=== PATIENT | female | born 1955 | race Caucasian/White ===

== ENCOUNTER 2022-05-04 14:14 | Inpatient (IN) ==
[2022-05-04] MEDS ORDERED: NORCO 7.5/325 MG TAB PO PRN (17:09)
[2022-05-04] MEDS: MOBIC TAB 15 MG PO SCH (17:39)
[2022-05-04 17:55] LABS: ALANINE AMINOTRANSFERASE 22 Units/L (12-78); ALBUMIN 3.5 g/dL (3.4-5.0); ALKALINE PHOSPHATASE 75 Units/L (46-116); ASPARTATE AMINO TRANSFERASE 24 Units/L (15-37); BLOOD UREA NITROGEN 16 mg/dL (7-18); CALCIUM 8.6 mg/dL (8.5-10.1); CHLORIDE 105 mmol/L (98-107); CREATININE 0.63 mg/dL (0.55-1.02); SODIUM 139 mmol/L (136-145); TOTAL PROTEIN 7.8 g/dL (6.4-8.2); eGFR NON BLACK RACES > 60 (>60)
[2022-05-04 17:58] LABS: BASOPHILS # (AUTO) 0.1 X10^3/uL (0.0-0.1); BASOPHILS % (AUTO) 1.4 % (0.2-1.0); EOSINOPHILS # (AUTO) 0.2 x10^3/uL (0.0-0.2); EOSINOPHILS % (AUTO) 1.8 % (0.9-2.9); HEMATOCRIT 35.7 % (36.0-47.0); HEMOGLOBIN 12.2 g/dL (12.0-16.0); LYMPHOCYTES # (AUTO) 2.6 X10^3/uL (1.3-2.9); LYMPHOCYTES % (AUTO) 29.4 % (21.0-51.0); MEAN CORPUSCULAR HEMOGLOBIN 29.6 pg (27.0-34.0); MEAN CORPUSCULAR VOLUME 86.9 fL (80.0-100.0); MEAN PLATELET VOLUME 6.6 fL (7.4-11.0); MONOCYTES # (AUTO) 0.8 x10^3/uL (0.3-0.8); MONOCYTES % (AUTO) 9.2 % (0.0-13.0); NEUTROPHILS # (AUTO) 5.1 x10^3/uL (2.2-4.8); NEUTROPHILS % (AUTO) 58.2 % (42.0-75.0); RED BLOOD COUNT 4.11 X10^6/uL (3.5-5.4); RED CELL DISTRIBUTION WIDTH 15.3 % (11.6-16.5)
[2022-05-04 18:11] LABS: WHITE BLOOD COUNT 8.8 X10^3/uL (3.6-10.0)
[2022-05-04 18:14] LABS: PLATELET MORPHOLOGY COMMENT NORMAL (NORMAL)
[2022-05-04 18:18] VITALS: BMI 17.5
[2022-05-05] MEDS: DILAUDID INJ IVP PRN ×4 (01:50→21:31)
[2022-05-05 06:02] LABS: BASOPHILS # (AUTO) 0.1 X10^3/uL (0.0-0.1); BASOPHILS % (AUTO) 1.4 % (0.2-1.0); EOSINOPHILS # (AUTO) 0.2 x10^3/uL (0.0-0.2); EOSINOPHILS % (AUTO) 3.2 % (0.9-2.9); HEMATOCRIT 35.3 % (36.0-47.0); HEMOGLOBIN 12.1 g/dL (12.0-16.0); LYMPHOCYTES # (AUTO) 2.7 X10^3/uL (1.3-2.9); LYMPHOCYTES % (AUTO) 39.3 % (21.0-51.0); MEAN CORPUSCULAR HEMOGLOBIN 29.9 pg (27.0-34.0); MEAN CORPUSCULAR HGB CONC 34.2 g/dL (33.0-35.0); MEAN CORPUSCULAR VOLUME 87.4 fL (80.0-100.0); MEAN PLATELET VOLUME 6.3 fL (7.4-11.0); MONOCYTES # (AUTO) 0.6 x10^3/uL (0.3-0.8); MONOCYTES % (AUTO) 8.2 % (0.0-13.0); NEUTROPHILS # (AUTO) 3.3 x10^3/uL (2.2-4.8); NEUTROPHILS % (AUTO) 47.9 % (42.0-75.0); RED BLOOD COUNT 4.04 X10^6/uL (3.5-5.4); WHITE BLOOD COUNT 6.8 X10^3/uL (3.6-10.0)
[2022-05-05 06:34] LABS: ALANINE AMINOTRANSFERASE 19 Units/L (12-78); ALBUMIN 3.3 g/dL (3.4-5.0); ALKALINE PHOSPHATASE 69 Units/L (46-116); ASPARTATE AMINO TRANSFERASE 21 Units/L (15-37); BLOOD UREA NITROGEN 16 mg/dL (7-18); CALCIUM 8.7 mg/dL (8.5-10.1); CARBON DIOXIDE 22.1 mmol/L (21-32); CHLORIDE 106 mmol/L (98-107); COR CA(FOR HYPOALB) 9.3 mg/dL (8.5-10.1); CREATININE 0.65 mg/dL (0.55-1.02); SODIUM 140 mmol/L (136-145); TOTAL PROTEIN 7.2 g/dL (6.4-8.2); eGFR NON BLACK RACES > 60 (>60)
[2022-05-05] MEDS: MOBIC TAB 15 MG PO SCH (08:05)
[2022-05-05] MEDS: LOVENOX INJ 40 MG SYR SC SCH (13:41)
--- NOTE | 2022-05-05 17:07 | MRI ---
HISTORYINTRACTABLE PAIN, GAIT ABNORMALITYSTUDYCERVICAL W/O CONCOMPARISONCT cervical spine from March 31, 2022TECHNIQUEMRI of the cervical spine were obtained without the administration of IV contrast utilizing a routine protocol.FINDINGSNo abnormal T2 or pathologic signal in the imaged vertebral bodies.Anterior spinal fusion hardware in place at C6-C7.Grade 1 anterolisthesis of C3 on C4; secondary to posterior degenerative changes.Vertebral body heights are maintained.Atlanto-axial articulation is intact.Visualized portion of the cerebellum and brainstem appear normal.Soft tissues are unremarkable.Levels:C2-C3: No significant posterior disc bulge or central canal stenosis. Mild right neural foraminal narrowing secondary to uncovertebral degenerative changes.C3-C4: Moderate central canal stenosis secondary to grade 1 anterolisthesis of C3 on C4 as well as a broad-based posterior disc bulge. Increased T2 signal in the spinal cord posterior to the C3-C4 disc space (extending from the mid C3 to mid C4 vertebral bodies) is consistent with myelomalacia. Severe bilateral neural foraminal narrowing secondary to uncovertebral facet degenerative changes.C4-C5: Moderate intervertebral disc space height loss. Moderate broad-based anterior disc osteophyte complex. Mild broad-based posterior disc bulge not resulting in significant central canal stenosis. Severe left and moderate right neural foraminal narrowing secondary to uncovertebral degenerative changes.C5-C6: Mild intervertebral disc space height loss. Mild broad-based posterior disc osteophyte complex not resulting in significant central canal stenosis. Severe bilateral neural foraminal narrowing secondary to uncovertebral and facet degenerative changes. Small focus of myelomalacia posterior to the intervertebral disc space seen on the sagittal STIR sequence.C6-C7:No significant posterior disc bulge, central canal stenosis or neural foraminal narrowing.C7-T1: No significant posterior disc bulge, central canal stenosis or neural foraminal narrowing.IMPRESSIONMultilevel degenerative disc and joint changes resulting in central canal stenosis and neural foraminal narrowing as detailed above. There is myelomalacia posterior to the C3-C4 level as well as the intervertebral disc at C5-C6.Electronically signed by: Heri Claudio (May 05, 2022 17:05:35)
[2022-05-05] MEDS ORDERED: KLOR-CON PO PRN (23:55)
[2022-05-05] MEDS ORDERED: K-DUR TAB 20 MEQ PO PRN (23:55)
[2022-05-05] MEDS ORDERED: POTASSIUM CHLORIDE LIQ 20 MEQ UDC PO PRN (23:55)
[2022-05-06] MEDS: DILAUDID INJ IVP PRN ×4 (02:11→18:11)
[2022-05-06 06:24] LABS: BASOPHILS # (AUTO) 0.1 X10^3/uL (0.0-0.1); EOSINOPHILS # (AUTO) 0.2 x10^3/uL (0.0-0.2); EOSINOPHILS % (AUTO) 2.6 % (0.9-2.9); HEMATOCRIT 34.9 % (36.0-47.0); HEMOGLOBIN 11.9 g/dL (12.0-16.0); LYMPHOCYTES % (AUTO) 44.3 % (21.0-51.0); MEAN CORPUSCULAR HGB CONC 34.1 g/dL (33.0-35.0); MEAN PLATELET VOLUME 6.4 fL (7.4-11.0); MONOCYTES # (AUTO) 0.6 x10^3/uL (0.3-0.8); MONOCYTES % (AUTO) 8.8 % (0.0-13.0); NEUTROPHILS % (AUTO) 43.3 % (42.0-75.0); RED BLOOD COUNT 3.97 X10^6/uL (3.5-5.4); RED CELL DISTRIBUTION WIDTH 14.7 % (11.6-16.5); WHITE BLOOD COUNT 6.8 X10^3/uL (3.6-10.0)
[2022-05-06 06:40] LABS: ALANINE AMINOTRANSFERASE 26 Units/L (12-78); ALBUMIN 3.2 g/dL (3.4-5.0); ALKALINE PHOSPHATASE 73 Units/L (46-116); ASPARTATE AMINO TRANSFERASE 30 Units/L (15-37); BLOOD UREA NITROGEN 19 mg/dL (7-18); CALCIUM 8.7 mg/dL (8.5-10.1); CARBON DIOXIDE 22.7 mmol/L (21-32); CHLORIDE 106 mmol/L (98-107); COR CA(FOR HYPOALB) 9.3 mg/dL (8.5-10.1); CREATININE 0.64 mg/dL (0.55-1.02); MAGNESIUM 1.9 mg/dL (1.7-2.9); SODIUM 139 mmol/L (136-145); TOTAL PROTEIN 7.3 g/dL (6.4-8.2); eGFR NON BLACK RACES > 60 (>60)
[2022-05-06] MEDS: LOVENOX INJ 40 MG SYR SC SCH (09:16)
[2022-05-06] MEDS: MOBIC TAB 15 MG PO SCH (09:16)
[2022-05-06 16:31] VITALS: BP 122/74
[2022-05-06] MEDS ORDERED: COLACE CAP 100 MG PO SCH (21:00)
[2022-05-06] MEDS ORDERED: MIRALAX POWDER (1 DOSE 17 G) PO SCH (21:00)
== END 2022-05-06 18:10 | disposition short-term general hospital (02) | DRG 53 ==
LOC: MED/SURG
PROVIDERS: ADMIT Obstetrics & Gynecology Obstetrics; ATTEND Obstetrics & Gynecology Obstetrics
DX: R26.89 Other abnormalities of gait and mobility; Z20.822 Contact with and (suspected) exposure to COVID-19; G82.50 Quadriplegia, unspecified; G95.89 Other specified diseases of spinal cord; M50.21 Other cervical disc displacement, high cervical region

== ENCOUNTER 2024-01-04 23:23 | Inpatient (IN) ==
[2024-01-04 23:52] VITALS: BMI 18.1
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
[2024-01-05] MEDS: TORADOL 30 MG VIAL IM ONE (00:10)
--- NOTE | 2024-01-05 06:12 | RAD ---
EXAM:Right ankle three viewsHISTORY:Fall, right ankle pain and swellingCOMPARISON:NoneFINDINGS:Diffuse medial and lateral soft tissue swelling is present. Postoperative changes are present with a plate and 5 screws in the distal fibula and a plate and 3 screws in the distal tibia. There is a subtle nondisplaced spiral fracture of the distal shaft and diametaphysis of the tibia. tibiotalar joint is intact. No joint erosion or joint effusion is identified. Talus, subtalar joint and calcaneus appear intact. Bones are mildly osteopenic.IMPRESSION:Subtle spiral fracture distal shaft and diametaphyseal region of the distal tibiaPostsurgical changes as aboveDiffuse medial and lateral soft tissue swellingTHIS IS AN ELECTRONICALLY VERIFIED FINAL REPORT01/05/2024 6:08 AM - Electronically signed by Jose Francisco Monterroso MD
--- NOTE | 2024-01-05 06:15 | RAD ---
EXAM:Right tibia and fibula two viewsHISTORY:Fall, right lower extremity painCOMPARISON:NoneFINDINGS:Postsurgical changes are present with a plate and 5 screws in the distal fibula and plate and 3 screws in the distal tibia. Previously noted spiral fracture of the distal tibial shaft and diametaphysis again identified. There is also a another fracture line more prominent in the distal tibial shaft. Fracture is nondisplaced. Remainder of the tibia and fibula are intact.IMPRESSION:Nondisplaced spiral fractures of the distal tibial shaft and diametaphyseal regions as described aboveTHIS IS AN ELECTRONICALLY VERIFIED FINAL REPORT01/05/2024 6:11 AM - Electronically signed by Jose Francisco Monterroso MD
--- NOTE | 2024-01-05 06:17 | RAD ---
EXAM: Right foot two views HISTORY: Fall, COMPARISON: FINDINGS: Bones are osteopenic. There is diffuse soft tissue swelling medially and laterally at the level of the ankle joint. Once again noted is the spiral fracture of the distal tibia and diametaphyseal angelica on. It is nondisplaced. No fracture, lytic, or blastic lesion is identified in the foot. No erosiv e arthritis is identified. There is soft tissue swelling over the dorsum of the foot at the metatars al level. IMPRESSION: No definite foot fracture Redemonstration of the previously described distal tibial nondisplaced fracture Soft tissue swelling as described THIS IS AN ELECTRONICALLY VERIFIED FINAL REPORT 01/05/2024 6:13 AM - Electronically signed by Jose Francisco Monterroso MD
[2024-01-05 08:17] LABS: BASOPHILS # (AUTO) 0.1 X10^3/uL (0.0-0.1); BASOPHILS % (AUTO) 1.2 % (0.2-1.0); EOSINOPHILS # (AUTO) 0.2 x10^3/uL (0.0-0.2); EOSINOPHILS % (AUTO) 3.7 % (0.9-2.9); HEMATOCRIT 35.1 % (36.0-47.0); HEMOGLOBIN 11.7 g/dL (12.0-16.0); LYMPHOCYTES % (AUTO) 35.7 % (21.0-51.0); MEAN CORPUSCULAR HEMOGLOBIN 28.5 pg (27.0-34.0); MEAN CORPUSCULAR HGB CONC 33.3 g/dL (33.0-35.0); MEAN CORPUSCULAR VOLUME 85.5 fL (80.0-100.0); MEAN PLATELET VOLUME 6.5 fL (7.4-11.0); MONOCYTES # (AUTO) 0.6 x10^3/uL (0.3-0.8); MONOCYTES % (AUTO) 11.2 % (0.0-13.0); NEUTROPHILS # (AUTO) 2.7 x10^3/uL (2.2-4.8); NEUTROPHILS % (AUTO) 48.2 % (42.0-75.0); PLATELET COUNT 240 X10^3/uL (150.0-450.0); RED CELL DISTRIBUTION WIDTH 15.7 % (11.6-16.5); WHITE BLOOD COUNT 5.5 X10^3/uL (3.6-10.0)
--- NOTE | 2024-01-05 08:22 | CT ---
EXAM:LOWER EXT W/OHISTORY:Right ankle fractureTECHNIQUE:Axial noncontrast images with coronal and sagittal reformats. Dose reduction procedures were used with mA/kv adjusted for body size.COMPARISON:Plain films same dateFINDINGS:There is diffuse subcutaneous soft tissue swelling over the distal tibia and fibula ankle and forefoot. Bones are osteopenic. Postsurgical changes include a plate and screws in the distal fibula and also in the distal tibia. Bones are osteopenic. There is a spiral fracture of the distal left tibial shaft and diametaphysis best visualized on coronal series 7 images 14 through 17. It is nondisplaced.. An extends upward in the tibial shaft and caudal to the diametaphyseal region. Tibiotalar joint is intact but demonstrates some degenerative joint disease likely posttraumatic. Talus, subtalar joint, calcaneus and visualized tarsal bones appear intact.IMPRESSION:Spiral fracture of the distal tibia as described, nondisplacedDegenerative joint disease tibiotalar joint likely posttraumatic and related to the patient's prior traumaPostsurgical changes as aboveSoft tissue swelling as aboveTHIS IS AN ELECTRONICALLY VERIFIED FINAL REPORT01/05/2024 8:19 AM - Electronically signed by Jose Francisco Monterroso MD
[2024-01-05 08:25] LABS: INR 1.22 (0.8-1.3)
[2024-01-05] MEDS: ZOFRAN INJ 4 MG VIAL IVP ONE (08:28)
[2024-01-05] MEDS: ANCEF VIAL 1 GRAM IVP ONE (08:28)
[2024-01-05] MEDS: MORPHINE SULFATE INJ 2 MG INJ IVP ONE (08:28)
[2024-01-05 08:30] LABS: ALANINE AMINOTRANSFERASE 15 Units/L (12-78); ALBUMIN 3.2 g/dL (3.4-5.0); ALKALINE PHOSPHATASE 89 Units/L (46-116); ASPARTATE AMINO TRANSFERASE 24 Units/L (15-37); BLOOD UREA NITROGEN 8 mg/dL (7-18); CALCIUM 8.3 mg/dL (8.5-10.1); CARBON DIOXIDE 28.4 mmol/L (21-32); CHLORIDE 108 mmol/L (98-107); COR CA(FOR HYPOALB) 8.9 mg/dL (8.5-10.1); CREATININE 0.64 mg/dL (0.55-1.02); GLUCOSE 94 mg/dL (65-99); POTASSIUM 3.2 mmol/L (3.5-5.1); SODIUM 145 mmol/L (136-145); TOTAL PROTEIN 7.3 g/dL (6.4-8.2); eGFR NON BLACK RACES > 60 (>60)
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
[2024-01-05] MEDS: NEURONTIN CAP 300 MG PO SCH (10:01)
[2024-01-05] MEDS: MORPHINE SULFATE INJ 2 MG INJ IVP PRN (10:02)
[2024-01-05] MEDS: ROBAXIN PO SCH (10:41)
[2024-01-05] MEDS: ZOFRAN INJ 4 MG VIAL IVP PRN (17:28)
[2024-01-06] MEDS: HIBICLENS WASH EXT ONE (04:30)
[2024-01-06] MEDS: MORPHINE SULFATE INJ 2 MG INJ IVP PRN (09:46)
--- NOTE | 2024-01-06 12:05 | EKG ---
Test Reason : pt. in pacu Blood Pressure : */* mmHG Vent. Rate : 65 BPM Atrial Rate : 65 BPM P-R Int : 156 ms QRS Dur : 90 ms QT Int : 428 ms P-R-T Axes : 69 -40 -31 degrees QTc Int : 445 ms Normal sinus rhythm Left axis deviation Septal infarct , age undetermined Abnormal ECG No previous ECGs available Confirmed by Eitan Rodríguez MD ([id number]) on 01/09/2024 7:41:24 AM Referred By: Confirmed By: Eitan Rodríguez MD
[2024-01-06] MEDS: LR 1,000 ML IV 1,000 ML IV ONE (12:07)
[2024-01-06] MEDS: NS 100 ML IV 100 ML ONE (12:40)
[2024-01-06] MEDS ORDERED: SUPRANE ONE (12:40)
[2024-01-06] MEDS: FENTANYL VIAL INJ 100 mcg ONE (12:40)
[2024-01-06] MEDS: ZEMURON 100 MG VIAL ONE (12:40)
[2024-01-06] MEDS: PEPCID 20 MG VIAL ONE (12:40)
[2024-01-06] MEDS: DIPRIVAN VIAL 20 ML ONE (12:40)
[2024-01-06] MEDS: VERSED ONE (12:40)
[2024-01-06] MEDS: BRIDION ONE (12:40)
[2024-01-06] MEDS: ANCEF VIAL 1 GRAM ONE (12:40)
[2024-01-06] MEDS: ZOFRAN INJ 4 MG VIAL ONE (12:40)
[2024-01-06] MEDS: MARCAINE 0.25% INJ ONE (13:01)
[2024-01-06] MEDS ORDERED: ZOFRAN INJ 4 MG VIAL IVP PRN (14:13)
[2024-01-06] MEDS ORDERED: REGLAN INJ 10 MG VIAL IVP PRN (14:13)
[2024-01-06] MEDS ORDERED: BARHEMSYS INJ IVP PRN (14:13)
[2024-01-06] MEDS ORDERED: BENADRYL INJ 50 MG VIAL IVP PRN (14:13)
--- NOTE | 2024-01-06 14:33 | RAD ---
EXAM: Right tibia and fibula two views HISTORY: Postop COMPARISON: 01/05/2024 FINDINGS: Patient is status post open reduction and internal fixation of a spiral fracture of the distal tibi al shaft with a long intramedullary giovani and multiple screws. Giovani continued across the tibiotalar and subtalar joints into the calcaneus. There appears to be an unreduced. There has an old open reduct ion internal fixation of a healed distal fibular fracture. Remainder of the tibia and fibula appear intact. IMPRESSION: As above THIS IS AN ELECTRONICALLY VERIFIED FINAL REPORT 01/06/2024 2:30 PM - Electronically signed by Jose Francisco Monterroso MD
[2024-01-06] MEDS: DILAUDID INJ IVP PRN (14:34)
[2024-01-06] MEDS ORDERED: NS IRRIGATION* 500 ML IR ONE (15:15)
[2024-01-06] MEDS: PERCOCET TAB 5/325 MG PO PRN (16:30)
[2024-01-06] MEDS: K-DUR TAB 20 MEQ PO SCH (18:00)
[2024-01-06] MEDS ORDERED: CONSULT PHARMACY - POTASSIUM & MAGNESIUM XX SCH (18:00)
[2024-01-06] MEDS: ANCEF VIAL 1 GRAM IVP SCH (21:18)
[2024-01-06] MEDS ORDERED: M.S. CONTIN 30 MG EXTENDED RELEASE PO SCH (22:00)
[2024-01-06] MEDS: M.S. CONTIN 15 MG (EXTENDED RELEASE) PO SCH (22:32)
[2024-01-07 06:30] LABS: BASOPHILS # (AUTO) 0.1 X10^3/uL (0.0-0.1); BASOPHILS % (AUTO) 0.8 % (0.2-1.0); EOSINOPHILS # (AUTO) 0.2 x10^3/uL (0.0-0.2); EOSINOPHILS % (AUTO) 3.3 % (0.9-2.9); HEMATOCRIT 30.9 % (36.0-47.0); HEMOGLOBIN 10.2 g/dL (12.0-16.0); LYMPHOCYTES # (AUTO) 1.3 X10^3/uL (1.3-2.9); LYMPHOCYTES % (AUTO) 18.9 % (21.0-51.0); MEAN CORPUSCULAR HEMOGLOBIN 28.5 pg (27.0-34.0); MEAN CORPUSCULAR HGB CONC 33.2 g/dL (33.0-35.0); MEAN CORPUSCULAR VOLUME 85.9 fL (80.0-100.0); MEAN PLATELET VOLUME 6.5 fL (7.4-11.0); MONOCYTES # (AUTO) 0.7 x10^3/uL (0.3-0.8); NEUTROPHILS # (AUTO) 4.4 x10^3/uL (2.2-4.8); PLATELET COUNT 194 X10^3/uL (150.0-450.0); RED CELL DISTRIBUTION WIDTH 15.8 % (11.6-16.5); WHITE BLOOD COUNT 6.6 X10^3/uL (3.6-10.0)
[2024-01-07 06:49] LABS: ALANINE AMINOTRANSFERASE 14 Units/L (12-78); ALBUMIN 2.6 g/dL (3.4-5.0); ALKALINE PHOSPHATASE 74 Units/L (46-116); ASPARTATE AMINO TRANSFERASE 27 Units/L (15-37); BLOOD UREA NITROGEN 10 mg/dL (7-18); CALCIUM 7.7 mg/dL (8.5-10.1); CARBON DIOXIDE 27.1 mmol/L (21-32); CHLORIDE 109 mmol/L (98-107); COR CA(FOR HYPOALB) 8.8 mg/dL (8.5-10.1); COR NA(FOR HYPERGLY) 144 mmol/L (136-145); CREATININE 0.77 mg/dL (0.55-1.02); GLUCOSE 116 mg/dL (65-99); POTASSIUM 3.6 mmol/L (3.5-5.1); SODIUM 144 mmol/L (136-145); TOTAL PROTEIN 6.3 g/dL (6.4-8.2); eGFR NON BLACK RACES > 60 (>60)
[2024-01-07] MEDS ORDERED: CONSULT PHARMACY - POTASSIUM & MAGNESIUM XX SCH (08:00)
--- NOTE | 2024-01-07 08:11 | NOTE.SOAP ---
Soap Note Note for Day of Date of Exam: 01/07/24 Subjective Data Subjective Data: 68 year old female s/p ORIF right tibia with TTC Intramedullary nail (DOS: 01/06/24). Patient doing okay this am; she is in pain at the incision sites. Denies pain elsewhere. Denies any constitutional symptoms this morning Objective Data Objective Data: Dressings are c/d/i. Patient unable to move toes but she can feel fine touch along her toes. Neurovascular status intact Assessment Assessment: 68F with a 42B Tibial Fracture who underwent ORIF with a retro intramedullary nail (DOS: 01/06/2024) Plan Plan: Patient seen this am; pain being managed with morphine and Percocet. Patient would like something stronger; she is very tolerable to pain medication. I explained the pain will be less each day. Ancef 3 bags given. Lovenox for DVT ppx. Patient can be PWB in a splint to the RLE with assistive device. Patient was explaining to me that she has 5 dogs at home; she doesnt have much support. It would be best if she can be placed in a rehab facility for recovery post op.
[2024-01-07] MEDS: LOVENOX INJ 40 MG SYR SC SCH (09:27)
[2024-01-07] MEDS: K-DUR TAB 20 MEQ PO SCH (09:28)
[2024-01-07] MEDS: COLACE CAP 100 MG PO SCH (11:59)
[2024-01-07] MEDS: MILK OF MAGNESIA PO PRN (16:37)
[2024-01-07] MEDS: DILAUDID INJ ONE (20:07)
[2024-01-08] MEDS: TORADOL 15 MG VIAL IVP PRN (01:50)
--- NOTE | 2024-01-08 08:37 | NOTE.SOAP ---
Soap Note Note for Day of Date of Exam: 01/07/24 Subjective Data Subjective Data: 68 year old female s/p ORIF right tibia with TTC Intramedullary nail (DOS: 01/06/24). Patient doing okay this am. Denies any constitutional symptoms this morning. Spoke to nurses about pain overnight and that she was hypotensive, she cannot get more pain mediccation Objective Data Objective Data: Dressings are c/d/i, slight strikethrough medially. Patient unable to move toes but she can feel fine touch along her toes. Neurovascular status intact Assessment Assessment: 68F with a 42B Tibial Fracture who underwent ORIF with a retro intramedullary nail (DOS: 01/06/2024) Plan Plan: Patient seen this am; pain being managed with morphine and Percocet. Patient would like something stronger; she is very tolerable to pain medication. She cannot get more. Lovenox for DVT ppx. Patient can be PWB in a splint to the RLE with assistive device. Dr. Walker consulted for patient's hernia repair. Plan is for patient to be placed in rehab facility for discharge. Will follow
[2024-01-08 08:39] LABS: BASOPHILS # (AUTO) 0.4 X10^3/uL (0.0-0.1); BASOPHILS % (AUTO) 6.5 % (0.2-1.0); EOSINOPHILS # (AUTO) 0.3 x10^3/uL (0.0-0.2); EOSINOPHILS % (AUTO) 5.2 % (0.9-2.9); HEMATOCRIT 29.4 % (36.0-47.0); HEMOGLOBIN 9.7 g/dL (12.0-16.0); LYMPHOCYTES # (AUTO) 1.4 X10^3/uL (1.3-2.9); LYMPHOCYTES % (AUTO) 25.8 % (21.0-51.0); MEAN CORPUSCULAR HEMOGLOBIN 28.6 pg (27.0-34.0); MEAN CORPUSCULAR HGB CONC 32.9 g/dL (33.0-35.0); MEAN PLATELET VOLUME 6.6 fL (7.4-11.0); MONOCYTES # (AUTO) 0.4 x10^3/uL (0.3-0.8); NEUTROPHILS # (AUTO) 2.9 x10^3/uL (2.2-4.8); NEUTROPHILS % (AUTO) 54.5 % (42.0-75.0); PLATELET COUNT 157 X10^3/uL (150.0-450.0); RED BLOOD COUNT 3.37 X10^6/uL (3.5-5.4); RED CELL DISTRIBUTION WIDTH 15.5 % (11.6-16.5); WHITE BLOOD COUNT 5.4 X10^3/uL (3.6-10.0)
[2024-01-08 08:53] LABS: ALANINE AMINOTRANSFERASE 9 Units/L (12-78); ALBUMIN 2.4 g/dL (3.4-5.0); ALKALINE PHOSPHATASE 72 Units/L (46-116); ASPARTATE AMINO TRANSFERASE 21 Units/L (15-37); BLOOD UREA NITROGEN 10 mg/dL (7-18); CALCIUM 7.7 mg/dL (8.5-10.1); CHLORIDE 110 mmol/L (98-107); COR NA(FOR HYPERGLY) 143 mmol/L (136-145); CREATININE 0.74 mg/dL (0.55-1.02); GLUCOSE 121 mg/dL (65-99); MAGNESIUM 1.9 mg/dL (2.0-2.9); SODIUM 142 mmol/L (136-145); TOTAL PROTEIN 5.9 g/dL (6.4-8.2); eGFR NON BLACK RACES > 60 (>60)
[2024-01-08 09:29] LABS: BASOPHILS % (MANUAL) 8 % (0-1)
[2024-01-08 09:30] LABS: PLATELET MORPHOLOGY COMMENT NORMAL (NORMAL)
[2024-01-09 06:31] LABS: BASOPHILS % (AUTO) 0.7 % (0.2-1.0); EOSINOPHILS # (AUTO) 0.3 x10^3/uL (0.0-0.2); EOSINOPHILS % (AUTO) 5.2 % (0.9-2.9); HEMATOCRIT 27.3 % (36.0-47.0); HEMOGLOBIN 9.1 g/dL (12.0-16.0); LYMPHOCYTES # (AUTO) 1.8 X10^3/uL (1.3-2.9); MEAN CORPUSCULAR HEMOGLOBIN 28.7 pg (27.0-34.0); MEAN CORPUSCULAR HGB CONC 33.3 g/dL (33.0-35.0); MEAN CORPUSCULAR VOLUME 86.2 fL (80.0-100.0); MEAN PLATELET VOLUME 7.4 fL (7.4-11.0); MONOCYTES # (AUTO) 0.8 x10^3/uL (0.3-0.8); MONOCYTES % (AUTO) 12.6 % (0.0-13.0); NEUTROPHILS # (AUTO) 3.5 x10^3/uL (2.2-4.8); NEUTROPHILS % (AUTO) 53.5 % (42.0-75.0); PLATELET COUNT 164 X10^3/uL (150.0-450.0); RED BLOOD COUNT 3.17 X10^6/uL (3.5-5.4); RED CELL DISTRIBUTION WIDTH 15.4 % (11.6-16.5); WHITE BLOOD COUNT 6.6 X10^3/uL (3.6-10.0)
[2024-01-09 06:35] LABS: ALANINE AMINOTRANSFERASE 9 Units/L (12-78); ALBUMIN 2.3 g/dL (3.4-5.0); ALKALINE PHOSPHATASE 65 Units/L (46-116); ASPARTATE AMINO TRANSFERASE 15 Units/L (15-37); BLOOD UREA NITROGEN 10 mg/dL (7-18); CALCIUM 7.6 mg/dL (8.5-10.1); CARBON DIOXIDE 27.1 mmol/L (21-32); CHLORIDE 108 mmol/L (98-107); CREATININE 0.53 mg/dL (0.55-1.02); GLUCOSE 95 mg/dL (65-99); SODIUM 141 mmol/L (136-145); TOTAL PROTEIN 5.8 g/dL (6.4-8.2); eGFR NON BLACK RACES > 60 (>60)
[2024-01-10 16:32] VITALS: RESP 22
[2024-01-10 17:06] VITALS: BP 107/58; PULSE 73; TEMP 98.7; O2SAT 97
== END 2024-01-10 18:05 | disposition home health service (06) | DRG 563 ==
LOC: ER 23:23 → MED/SURG 01-05 08:41
PROVIDERS: ADMIT Internal Medicine; ATTEND Obstetrics & Gynecology Obstetrics
DX: X58.XXXA Exposure to other specified factors, initial encounter; I10 Essential (primary) hypertension; R26.89 Other abnormalities of gait and mobility; S82.54XA Nondisplaced fracture of medial malleolus of right tibia, initial encounter for closed fracture; T84.84XA Pain due to internal orthopedic prosthetic devices, implants and grafts, initial encounter; W18.39XA Other fall on same level, initial encounter; Z01.810 Encounter for preprocedural cardiovascular examination; M79.671 Pain in right foot